=== PATIENT | female | born 1940 | race Caucasian/White ===

== ENCOUNTER 2023-11-24 19:39 | Emergency (ER) | payer MEDICARE, BC, SELFPAY ==
[2023-11-24 19:40] VITALS: BP 160/85
--- NOTE | 2023-11-24 21:22 | ED.GENMED ---
History of Present Illness
General
Chief Complaint: Fall
Time Seen by Provider: 11/24/23 20:33
History of Present Illness
History of Present Illness:
83-year-old female presents the emergency department for evaluation of lower lip discomfort, and left wrist pain after a mechanical fall. Tripped on a curb and fell down. No loss conscious. She is not on anticoagulants. Last tetanus is unknown
Past History
Past History
ED Past Medical History: Cancer (cervical), HTN, Other (diverticulosis) and Other (Arthritis)
Social History
Tobacco: Former smoker
Alcohol: None
Drug: None
Personal:
Living: alone
Employment: Employed
Review of Systems
Review of Systems
Allergies reviewed?: Yes
All Other Systems: ROS reviewed and negative except as documented in HPI and ROS
Phy Exam
Physical Exam
Physical Exam:
GEN: Well appearing, NAD, WDWN
HEENT: Oral mucosa moist, no scleral icterus, minor laceration to the lower lip with a 1 cm partial-thickness laceration just inferior to the vermilion border on the right
Cardiac: Regular rate
Lung: No respiratory distress, no tachypnea
MSK: No gross deformity or injuries, tenderness to the ulnar aspect of the left hand with no gross deformity and normal range of motion is appreciated
Skin: Good color, no pallor or jaundice, no rashes
Neuro: AO x3, moves all extremities freely, cranial nerves II through XII grossly intact
Psych: Calm, cooperative
Course
Orders/Labs/Results
Orders:
Orders
11/24/23 19:50
Wrist, Left 3 Views CR [CR Wrist - Left Min 3 Views] Urgent
Comment:
Reason For Exam: injury and pain
11/24/23 19:[address] [CT Head W/o Iv Contrast] Urgent
Comment: the patient landed on her face.
Reason For Exam: S/P fall
11/24/23 21:02
Tetanus/Diphth/Acelpertussis [Adacel] 0.5 ml IM .ONCE ONE
Vital Signs
Initial and Last Documented VS:
Initial Vital Signs
Temp Pulse Resp BP Pulse Ox
98.0 F 66 20 160/85 97
11/24/23 19:40 11/24/23 19:40 11/24/23 19:40 11/24/23 19:40 11/24/23 19:40
Last Documented Vital Signs
Temp Pulse Resp BP Pulse Ox
98.0 F 60 18 148/80 94
11/24/23 19:40 11/24/23 22:02 11/24/23 22:02 11/24/23 22:02 11/24/23 22:02
MDM/Problems Addressed
MDM/Problems Addressed:
CT of the head and left wrist x-ray are unremarkable. The lower lip laceration was reapproximated and closed with skin glue after irrigation.
*Critical Care Note
Total Time (30-74mins, 75-104mins- exclusive of procedures): Not Applicable
ED Attending Note
-
Portions of this chart may have been created with voice recognition software.� Occasional wrong word or��sound alike� substitutions may have occurred due to the inherent limitations of voice recognition software.
Discharge Plan
Departure
Patient Disposition: Home (Routine Discharge)
Date of Disposition: 11/24/23
Time of Disposition: 21:23
Patient with high blood pressure during this ER visit?: No
Discharge Problem:
Left wrist sprain, Laceration of lip
Instructions: Laceration Repair With Glue (DC)
Prescriptions:
No Action
triamterene-hydrochlorothiazid 1 CAPSULE capsule
1 cap PO DAILY
vitamins A,C,S-[id number] [PreserVision AREDS] 1 CAP capsule
1 cap PO DAILY
pantoprazole 40 MG tablet,delayed release (DR/EC)
40 mg PO DAILY Qty: 30 0RF
Referrals:
Sophie Deluna PA-C [Family Provider] -
Interventions
Interventions:
*General Assessment Last Done: 11/24/23 19:40
*Neglect/Abuse Screening Last Done: 11/24/23 19:40
*Nursing Disposition Last Done: 11/24/23 22:04
ED-Musculoskeletal Assessment Last Done: 11/24/23 22:02
ED- Neurological Assessment Last Done: 11/24/23 22:02
ED-Skin Assessment Last Done: 11/24/23 22:02
Discharge Date and Time
Discharge Date/Time: 11/24/23 22:04
Print Language: AMHARIC
[2023-11-24] MEDS: ADACEL 0.5 ML IM (21:36)
[2023-11-24 22:02] VITALS: BP 148/80
== END 2023-11-24 22:04 | disposition home or self-care (01) ==
LOC: EMR 19:39
PROVIDERS: EMERGENCY PHYSICIAN Emergency Medicine; FAMILY PHYSICIAN Physician Assistant Medical
DX: S63.502A Unspecified sprain of left wrist, initial encounter (principal); S01.511A Laceration without foreign body of lip, initial encounter; W10.1XXA Fall (on)(from) sidewalk curb, initial encounter; Z23 Encounter for immunization; I10 Essential (primary) hypertension; Z87.891 Personal history of nicotine dependence; K57.90 Diverticulosis of intestine, part unspecified, without perforation or abscess without bleeding; Z85.41 Personal history of malignant neoplasm of cervix uteri; M19.90 Unspecified osteoarthritis, unspecified site; Z88.6 Allergy status to analgesic agent
CPT/HCPCS: 99284; 90471; 12011; 70450; 73110; 90715

== ENCOUNTER → 2024-03-09 13:49 | Outpatient (REF) | payer MEDICARE, BC, SELFPAY | LOC: HWRAD 13:49 | PROVIDERS: ATTENDING PHYSICIAN Specialist; FAMILY PHYSICIAN Physician Assistant Medical | DX: M79.5 Residual foreign body in soft tissue (principal) | CPT/HCPCS: 70150 ==

== ENCOUNTER → 2024-04-09 13:55 | Outpatient (REF) | payer MEDICARE, BC, SELFPAY | LOC: HWRAD 13:55 | PROVIDERS: ATTENDING PHYSICIAN Physician Assistant Medical | DX: M54.41 Lumbago with sciatica, right side (principal); M25.552 Pain in left hip | CPT/HCPCS: 72110; 73502 ==

== ENCOUNTER 2024-06-06 08:14 | Inpatient (IN) | payer MEDICARE, BC, SELFPAY ==
[2024-05-15 13:58] LABS: Hematocrit 37.5 % (37.0-47.0); Hemoglobin 12.2 g/dL (12.0-16.0); Mean Corp Hgb Conc. 32.5 g/dL (33.0-37.0); Mean Corpuscular Hgb 32.3 pg (27.0-31.0); Mean Corpuscular Volume 99.2 fL (81.0-99.0); Mean Platelet Volume 9.8 fL (7.4-10.4); Platelet Count 305 10^3/uL (130-400); Red Blood Cell Count 3.78 10^6/uL (4.20-5.40); Red Cell Dist. Width 12.8 % (11.5-14.5); White Blood Cell Count 6.6 10^3/uL (4.8-10.8)
[2024-05-15 14:09] VITALS: BMI 29.3
[2024-05-15 14:33] LABS: ALT (SGPT) 14 U/L (0-35); AST (SGOT) 19 U/L (14-36); Alkaline Phosphatase 71 U/L (38-126); Blood Urea Nitrogen 21 mg/dl (7-17); Calcium 9.3 mg/dl (8.4-10.2); Carbon Dioxide 30 mmol/L (22-30); Chloride 101 mmol/L (98-107); Estimated Creatinine Clearance 52 ml/min; Glucose 79 mg/dl (70-99); Sodium 138 mmol/L (135-145); Total Bilirubin 0.5 mg/dl (0.2-1.3); Total Protein 6.7 g/dl (6.3-8.2); eGFR > 60.00
[2024-05-16 09:45] LABS: Glycohemoglobin (HgbA1c) 4.9 % (4.0-5.6)
--- NOTE | 2024-05-18 15:25 | VNURNOTE ---
Rec'ed info that patient will need VN, PT post-op. Chart reviewed. Pt will be in [facility] status day of surgery. She will be admitted and a CM will see her to assist in final DC planning/dispo. [facility] referral placed in [facility]. [facility] liaison to
follow up post-op.
[2024-06-06] VITALS (13 sets, daily range): BP systolic 89–157; BP diastolic 53–78; PULSE 66–85; O2SAT 100; BMI 29.3
[2024-06-06] MEDS: TYLENOL 650 MG PO ×4 (08:03→23:10)
[2024-06-06] MEDS: NORMOSOL-R/PLASMALYTE-A 1000 IV ×2 (08:18→13:58)
--- NOTE | 2024-06-06 10:33 | SUR.PHASEI ---
Rec'd in bed with HOB elevated low fowlers, b/p 85/55 med by IDA bonds, oriented x 3 by RN, pt very sleepy
--- NOTE | 2024-06-06 10:52 | SUR.PHASEI ---
REmains sleepy, xray done cornell well B/p returning to baseline with sp regression
--- NOTE | 2024-06-06 11:08 | SUR.PHASEI ---
Very sleepy, systolic remains in the 90s, cornell well
--- NOTE | 2024-06-06 12:17 | W.PN.UPDATE ---
Update Note
Progress Note Update
R hip OA s/p R RUBI w/ Dr Pierce 06/06/24
DVT prophylaxis - Eliquis 2.5 mg PO BID x30 days d/t ASA allergy, b/l venous foot pumps
- Will try and obtain Eliquis coupon from prior to d/c
HTN - + parameters - monitor BP
Diverticulitis with lower GI bleed 2017 - no NSAIDs
Irritable bowel syndrome with diarrhea - per pt preference, will continue Colace and Senna for post-surgical bowel regimen
Right subdural hematoma, 2019, secondary to fall, status post craniotomy - fall precautions
- Minimize opioids as able
Daily alcohol - 2 alcoholic drinks/nightly reported
- Supplement w/ thiamine, folic acid
- Consider Gabapentin and Serax HS
- Watch for potential s/sx of withdrawal
Hypercholesterolemia
Mild mitral regurgitation
Venous varicosities
Chronic left lower extremity lymphedema
Colon polyps
Nephrolithiasis, nonobstructive.
Restless leg syndrome
Optical migraines
Multilevel degenerative disc disease
Cervical cancer, 2007, status post hysterectomy and radiation
History of shingles
Osteopenia
Remote tobacco abuse
--- NOTE | 2024-06-06 12:46 | PTCARENOTE ---
pt admitted to 2S room 2114 from the PACU at 1150. pt arrived awake and alert via bed. pt oriented to room, call musa and plan of care with verbalized understanding. assessment as documented. Right hip surgical dressing remains clean and dry.
care ongoing.
[2024-06-06] MEDS: VITAMIN B-12 1000 MCG PO (13:55)
[2024-06-06] MEDS: VITAMIN D3 (cholecalciferol) 125 MCG PO (13:55)
[2024-06-06] MEDS: FOLVITE 0.5 MG PO (13:55)
[2024-06-06] MEDS: VITAMIN B1 100 MG PO (13:55)
[2024-06-06] MEDS: ANCEF 5 IV ×2 (16:44→23:10)
[2024-06-06] MEDS: SENOKOT 17.2 MG PO (19:43)
[2024-06-06] MEDS: DECADRON 4 MG PO (19:43)
[2024-06-06] MEDS: BACTROBAN 2% OINTMENT 1 APPLIC NASAL (19:43)
[2024-06-06] MEDS: COLACE 100 MG PO (19:43)
[2024-06-06] MEDS: ELIQUIS 2.5 MG PO (19:43)
[2024-06-06] MEDS: ROXICODONE 10 MG PO (19:47)
[2024-06-06] MEDS: MELATONIN 5 MG PO (21:53)
[2024-06-06] MEDS: PEPCID 20 MG PO (21:53)
[2024-06-07] MEDS: TYLENOL 650 MG PO ×3 (04:33→13:09)
[2024-06-07 04:38] VITALS: BP 126/63
[2024-06-07] MEDS: ROXICODONE 10 MG PO ×2 (04:38→10:34)
[2024-06-07 07:54] VITALS: BP 106/64
[2024-06-07] MEDS: VITAMIN B1 100 MG PO (08:39)
[2024-06-07] MEDS: VISBIOME 1 CAP PO (08:39)
[2024-06-07] MEDS: SENOKOT 17.2 MG PO (08:40)
[2024-06-07] MEDS: DECADRON 4 MG PO (08:40)
[2024-06-07] MEDS: VITAMIN B-12 1000 MCG PO (08:40)
[2024-06-07] MEDS: FOLVITE 0.5 MG PO (08:41)
[2024-06-07] MEDS: ELIQUIS 2.5 MG PO (08:41)
[2024-06-07] MEDS: COLACE 100 MG PO (08:41)
[2024-06-07] MEDS: VITAMIN D3 (cholecalciferol) 125 MCG PO (08:41)
[2024-06-07] MEDS: BACTROBAN 2% OINTMENT 1 APPLIC NASAL (08:43)
[2024-06-07] MEDS: LIDOCAINE 4% PATCH 2 PATCH TOPICAL (10:24)
--- NOTE | 2024-06-07 10:39 | VNURNOTE ---
Home Health Liaison met with patient at bedside to discuss [facility] nurse/therapy, visits, schedule and homebound status. Patient is agreeable and understands that visits at home will be 2-3 x per week to assess and teach medical management. Patient is
aware that [facility] will contact them for start of care in 1-2 days after discharge from .
[facility] referral accepted in [facility].
--- NOTE | 2024-06-07 10:45 | CM ---
Patient seen at bedside
IA completed
CM consult completed
IMM explained & signed. In chart
Lives alone in a 1 story home
PLOF: Independent with cane
DME: Walker, cane, commode, hip kit, grabber
states just ordered another commode
Patient states that her sister will be staying with her for a few days
PT/OT rec HH
has had VN in past, denies rehab
Options reviewed - Prefers [facility] - referral in [facility]-accepted
PCP: Sophie Deluna
Pharmacy: [facility]
PLAN: Home with [facility]
States sister to transport
[2024-06-07 11:36] VITALS: BP 116/68
[2024-06-07 12:07] VITALS: BP 116/68; BP 125/59; BP 131/60; PULSE 69; PULSE 74; O2SAT 97
--- NOTE | 2024-06-07 12:10 | W.PN.ORTHO ---
Today's Communication / Plan
-
Await PT and OT recs.
D/c later today if remaining clinically stable.
Assessment
.
Distal Motor Intact: Yes
Dressing:
Clean, dry and intact.
Assessment:
R hip OA s/p R RUBI w/ Dr Pierce 06/06/24
DVT prophylaxis - Eliquis 2.5 mg PO BID x30 days d/t ASA allergy, b/l venous foot pumps
- Pt picked up Eliquis for 33 dollars pre-op
HTN - + parameters - BPs overall stable
Diverticulitis with lower GI bleed 2017 - no NSAIDs
Irritable bowel syndrome with diarrhea - per pt preference, will continue Colace and Senna for post-surgical bowel regimen
Right subdural hematoma, 2019, secondary to fall, status post craniotomy - fall precautions
- Minimize opioids as able
Daily alcohol - 2 alcoholic drinks/nightly reported
- Supplement w/ thiamine, folic acid
- Consider Gabapentin and Serax HS
- No s/sx of withdrawal during admission
Hypercholesterolemia
Mild mitral regurgitation
Venous varicosities
Chronic left lower extremity lymphedema
Colon polyps
Nephrolithiasis, nonobstructive.
Restless leg syndrome
Optical migraines
Multilevel degenerative disc disease
Cervical cancer, 2007, status post hysterectomy and radiation
History of shingles
Osteopenia
Remote tobacco abuse
Plan
.
Surgery / Date: R RUBI w/ Dr Pierce 06/06/24
DVT Prophylaxis: Other (Eliquis )
Activity:
Out of bed.
PT/OT
Discharge Plan: Home w/ VN
Subjective
.
.:
Patient resting comfortably in her bed.
R hip pain overall well tolerated w/ current pain meds.
Denies any new current complaints.
Pt nervous about d/c home today - reassurance provided.
Vital Signs and Labs
.
Vital Signs and Labs:
Lab Results
05/15/24 12:43
05/15/24 12:43
Temp Pulse Resp BP Pulse Ox
97.5 F 84 16 116/68 99
06/07/24 11:36 06/07/24 11:36 06/07/24 11:36 06/07/24 11:36 06/07/24 11:36
Non-invasive Hgb result: 11.5
Physical Exam
-
HEENT: No pallor, cyanosis, or jaundice. Throat clear.
NECK: Supple. No JVD.
RESPIRATORY: Lungs clear to auscultation.
CVS: S1, S2 normal. RRR.�
ABDOMEN: Soft, non-tender. No distension.
EXTREMITIES: Strength equal, no calf pain with palpation/dorsiflexion. Calves soft.
FLUSH TESTER: AOx3. No focal deficits. manufacturing controller grossly intact
--- NOTE | 2024-06-07 12:18 | W.DS.TRANS ---
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
-
Discharge Instructions:
Sleep Apnea Risk Low
Discharge Diagnosis/Procedures R hip OA s/p R RUBI w/ Dr Pierce 06/06/24
Diet Other diet
Additional Diets Diabetic carb controlled x1 week for wound
healing/infection prevention.
Activity As tolerated,With Walker
Driving Restrictions Not until seen by your Dr
Bathing Restrictions OK to Shower
Other Services PT,VN
Wound Care Dressing to be removed 1 week post-surgery.
Instructions:
Stand-Alone Forms: Total Hip/Knee Replacement D/C
Changes to Home Medications: Yes
Discharge Medications:
DC Medications w/original date entered in [facility]
vitamins A,C,N-dnyd-ajrmyp 4,296 mcg-226 mg-90 mg capsule (PreserVision AREDS) 2 cap PO DAILY 11/26/13
Bifidobacterium infantis 4 mg capsule (Align (B.infantis)) 4 mg PO DAILY 05/14/24
biotin 5,000 mcg chewable tablet 5,000 mcg PO DAILY 05/14/24
cholecalciferol (vitamin D3) 125 mcg (5,000 unit) tablet (Vitamin D3) 125 mcg PO DAILY 05/14/24
collagen 1 tab PO DAILY 05/14/24
mecobalamin (vitamin B12) 1,000 mcg chewable tablet (B12 Active) 1,000 mcg PO DAILY 05/14/24
mupirocin 2 % topical ointment 1 applic intranasal BID #1 tube 05/15/24
apixaban 2.5 mg tablet (Eliquis) 2.5 mg PO BID Blood clot prevention/tx #60 tabs 05/30/24
acetaminophen 500 mg tablet 1,000 mg (2 x 500 mg) PO Q6H #0 tabs 06/06/24
dexamethasone 4 mg tablet 4 mg PO BID Anti-inflammatory #5 tabs 06/06/24
docusate sodium 100 mg capsule 100 mg PO BID #30 caps 06/06/24
famotidine 20 mg tablet (Pepcid) 20 mg PO HS #30 tabs 06/06/24
ondansetron HCl 4 mg tablet 4 mg PO Q6H PRN nausea and vomiting #30 tabs 06/06/24
oxycodone 5 mg tablet 5 - 10 mg (1 - 2 x 5 mg) PO Q6H PRN moderate-severe pain #30 tabs 06/06/24
sennosides 8.6 mg tablet (Xochitl-roger) 17.2 mg (2 x 8.6 mg) PO BID #30 tabs 06/06/24
triamterene 37.5 mg-hydrochlorothiazide 25 mg tablet 1 tab PO DAILY #1 tab 06/06/24
gabapentin 100 mg capsule 200 mg (2 x 100 mg) PO BID PRN neuropathic pain #20 caps 06/07/24
lidocaine 4 % topical patch 2 patch topical DAILY #30 ea 06/07/24
Home Medication Changes
apixaban 2.5 mg tablet (Eliquis) 2.5 mg PO BID Blood clot prevention/tx #60 tabs 05/30/24
acetaminophen 500 mg tablet 1,000 mg (2 x 500 mg) PO Q6H #0 tabs 06/06/24
dexamethasone 4 mg tablet 4 mg PO BID Anti-inflammatory #5 tabs 06/06/24
docusate sodium 100 mg capsule 100 mg PO BID #30 caps 06/06/24
famotidine 20 mg tablet (Pepcid) 20 mg PO HS #30 tabs 06/06/24
ondansetron HCl 4 mg tablet 4 mg PO Q6H PRN nausea and vomiting #30 tabs 06/06/24
oxycodone 5 mg tablet 5 - 10 mg (1 - 2 x 5 mg) PO Q6H PRN moderate-severe pain #30 tabs 06/06/24
sennosides 8.6 mg tablet (Xochitl-roger) 17.2 mg (2 x 8.6 mg) PO BID #30 tabs 06/06/24
gabapentin 100 mg capsule 200 mg (2 x 100 mg) PO BID PRN neuropathic pain #20 caps 06/07/24
lidocaine 4 % topical patch 2 patch topical DAILY #30 ea 06/07/24
Pending Results: No
[2024-06-07 12:56] VITALS: BP 124/68
== END 2024-06-07 14:19 | disposition home health service (06) | DRG 470 ==
LOC: 2 SOUTH 08:14
PROVIDERS: ADMITTING PHYSICIAN Orthopaedic Surgery; FAMILY PHYSICIAN Physician Assistant Medical
PROC: 0SR903A Replacement of Right Hip Joint with Ceramic Synthetic Substitute, Uncemented, Open Approach (ICD-10-PCS; 2024-06-06)
DX: M16.11 Unilateral primary osteoarthritis, right hip (principal); M85.851 Other specified disorders of bone density and structure, right thigh; I10 Essential (primary) hypertension; I89.0 Lymphedema, not elsewhere classified; E78.00 Pure hypercholesterolemia, unspecified; G25.81 Restless legs syndrome; G43.109 Migraine with aura, not intractable, without status migrainosus; K58.0 Irritable bowel syndrome with diarrhea; N20.0 Calculus of kidney; I34.0 Nonrheumatic mitral (valve) insufficiency; Z88.6 Allergy status to analgesic agent; Z90.710 Acquired absence of both cervix and uterus; Z86.79 Personal history of other diseases of the circulatory system; Z87.891 Personal history of nicotine dependence; Z79.899 Other long term (current) drug therapy
CPT/HCPCS: 36415; 73502; 80053; 83036; 85027; 87070; 93005; 97110; 97116; 97162; 97167; 97530; 97535; C1713; C1776

== ENCOUNTER 2024-12-19 06:50 | Inpatient (IN) | payer MEDICARE, BC, SELFPAY ==
--- NOTE | 2024-11-14 11:55 | CM ---
Demographics: confirmed
Living situation: lives alone, plans to have sister and son stay with her
Support Person Post Operatively: Sister and son
History of
VN: History of [facility], currently not on service
SNF: none
Outpatient: Plans to use home visiting PT after [facility] has discharged her, PT Ignacio Collazo
Has patient purchased required equipment: yes
PCP: Dr. Sophie Garner
Pharmacy: [facility] in [place]
Post Operative Discharge Plan: [facility], and then transition to visiting PT for outpatient PT.
[2024-11-28 13:49] LABS: Hematocrit 36.4 % (37.0-47.0); Hemoglobin 11.7 g/dL (12.0-16.0); Mean Corp Hgb Conc. 32.1 g/dL (33.0-37.0); Mean Corpuscular Volume 94.3 fL (81.0-99.0); Platelet Count 301 10^3/uL (130-400); Red Cell Dist. Width 14.6 % (11.5-14.5)
[2024-11-28 14:02] LABS: ALT (SGPT) 10 U/L (0-35); AST (SGOT) 17 U/L (14-36); Albumin 4.2 g/dl (3.5-5.0); Alkaline Phosphatase 74 U/L (38-126); Blood Urea Nitrogen 24 mg/dl (7-17); Calcium 9.5 mg/dl (8.4-10.2); Carbon Dioxide 29 mmol/L (22-30); Chloride 105 mmol/L (98-107); Glucose 70 mg/dl (70-99); Potassium 4.0 mmol/L (3.5-5.1); Sodium 140 mmol/L (135-145); Total Protein 6.8 g/dl (6.3-8.2); eGFR > 60.00
[2024-11-28 14:11] VITALS: BMI 27.1
[2024-11-28 14:48] LABS: Glycohemoglobin (HgbA1c) 4.8 % (4.0-5.6)
[2024-11-28 14:58] VITALS: BMI 27.1
[2024-12-19] VITALS (21 sets, daily range): BP systolic 104–153; BP diastolic 53–79; PULSE 76; O2SAT 98
[2024-12-19] MEDS: TYLENOL 650 MG PO ×4 (07:21→19:35)
[2024-12-19] MEDS: NORMOSOL-R/PLASMALYTE-A 1000 IV ×2 (07:46→11:34)
--- NOTE | 2024-12-19 08:45 | W.PN.ORTHO ---
Today's Communication / Plan
-
d/c when stable
Assessment
.
Assessment:
DVT ppx Eliquis due to asa allergy and increased risk of clot to include
peripheral edema, w/ varicosities, hx malignancy in setting of orthopedic
surgery
Pain control. Controlled substance will be tramadol due to
adverse reaction to oxycodone. She does have several of her previous
discharge medications at home. Remaining medications have been
prescribed
IBS-D
-prn Senna
Right subdural hematoma 2019 secondary to mechanical fall
s/p craniotomy.
-fall precautions
Plan
.
Surgery / Date: L RUBI Dr Pierce 12/19/24
DVT Prophylaxis: Other (Eliquis + SCD)
Activity:
Out of bed.
PT/OT
Discharge Plan: Home w/ VN
Vital Signs and Labs
.
Vital Signs and Labs:
Lab Results
11/28/24 12:57
11/28/24 12:57
Temp Pulse Resp BP Pulse Ox
97.5 F 75 16 153/79 99
12/19/24 07:24 12/19/24 07:24 12/19/24 07:24 12/19/24 07:24 12/19/24 07:24
--- NOTE | 2024-12-19 09:07 | W.DS.TRANS ---
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
-
Discharge Instructions:
Sleep Apnea Risk Low
Discharge Diagnosis/Procedures L RUBI Dr Pierce 12/19/24
Diet As tolerated
Activity With Walker
Driving Restrictions No driving
Bathing Restrictions OK to Shower
Other Services PT,VN,OT
Instructions:
Stand-Alone Forms: Total Hip/Knee Replacement D/C
Changes to Home Medications: Yes
Discharge Medications:
DC Medications w/original date entered in [employer]
vitamins A,C,F-xgpr-cyezdz 4,296 mcg-226 mg-90 mg capsule (PreserVision AREDS) 2 cap PO DAILY 11/26/13
Held on 12/19/24. Instructions: Resume on 12/27/24.
Bifidobacterium infantis 4 mg capsule (Align (B.infantis)) 4 mg PO DAILY 05/14/24
biotin 5,000 mcg chewable tablet 5,000 mcg PO DAILY 05/14/24
cholecalciferol (vitamin D3) 125 mcg (5,000 unit) tablet (Vitamin D3) 125 mcg PO DAILY 05/14/24
collagen 1 tab PO DAILY 05/14/24
Held on 12/19/24. Instructions: Resume on 12/27/24.
mecobalamin (vitamin B12) 1,000 mcg chewable tablet (B12 Active) 1,000 mcg PO DAILY 05/14/24
carboxymethylcellulose sodium 1 % eye liquid gel drops 1 drp ophthalmic (eye) DAILY 11/27/24
peg 400-propylene glycol 0.4 %-0.3 % eye drops (Systane (propylene glycol)) 1 drp ophthalmic (eye) DAILY PRN dry eyes 11/27/24
apixaban 2.5 mg tablet (Eliquis) 2.5 mg PO BID Blood clot prevention/tx #90 tabs 11/28/24
dexamethasone 4 mg tablet 4 mg PO BID inflammation #6 tabs 11/28/24
famotidine 20 mg tablet 20 mg PO HS GI prophylaxis #30 tabs 11/28/24
gabapentin 300 mg capsule 300 mg PO HS sleep/pain #10 caps 11/28/24
mupirocin 2 % topical ointment 1 applic topical BID infection prevention #1 tube 11/28/24
tramadol 50 mg tablet 50 mg PO Q6H PRN 1 tab moderate pain, 2 if severe #30 tabs 11/28/24
acetaminophen 500 mg tablet 1,000 mg (2 x 500 mg) PO QID #0 tabs 12/19/24
docusate sodium 100 mg capsule (Colace) 100 mg PO BID stool softner #1 cap 12/19/24
sennosides 8.6 mg tablet (Senokot) 17.2 mg (2 x 8.6 mg) PO BID PRN constipation #2 tabs 12/19/24
triamterene 37.5 mg-hydrochlorothiazide 25 mg tablet 1 tab PO DAILY #1 tab 12/19/24
Home Medication Changes
apixaban 2.5 mg tablet (Eliquis) 2.5 mg PO BID Blood clot prevention/tx #90 tabs 11/28/24
dexamethasone 4 mg tablet 4 mg PO BID inflammation #6 tabs 11/28/24
famotidine 20 mg tablet 20 mg PO HS GI prophylaxis #30 tabs 11/28/24
gabapentin 300 mg capsule 300 mg PO HS sleep/pain #10 caps 11/28/24
mupirocin 2 % topical ointment 1 applic topical BID infection prevention #1 tube 11/28/24
tramadol 50 mg tablet 50 mg PO Q6H PRN 1 tab moderate pain, 2 if severe #30 tabs 11/28/24
acetaminophen 500 mg tablet 1,000 mg (2 x 500 mg) PO QID #0 tabs 12/19/24
docusate sodium 100 mg capsule (Colace) 100 mg PO BID stool softner #1 cap 12/19/24
sennosides 8.6 mg tablet (Senokot) 17.2 mg (2 x 8.6 mg) PO BID PRN constipation #2 tabs 12/19/24
triamterene 37.5 mg-hydrochlorothiazide 25 mg tablet 1 tab PO DAILY #1 tab 12/19/24
Pending Results: No
[2024-12-19] MEDS: ULTRAM 50 MG PO ×2 (11:07→17:41)
--- NOTE | 2024-12-19 13:50 | PTCARENOTE ---
Pt received from the PACU via bed. Transport was w/o incident. Pt is AAOX3, HR reg/irreg, lungs are coarse/clear b/l., Resp. easy, Pulse ox 96%RA. Pt's left hip w/ antibacterial dressing C/D/I, no drainage noted at present. Pt reports full sensation
has returned to left leg, and Pt able to lift left leg and wiggle her toes. Pt denies nausea and pain at this time. VSS, Pt is afebrile. Pt instructed on plan of care, Pt verbalized understanding of instructions.
[2024-12-19] MEDS: ANCEF 5 IV (17:36)
[2024-12-19] MEDS: ELIQUIS 2.5 MG PO (19:35)
[2024-12-19] MEDS: DECADRON 4 MG IV (19:36)
[2024-12-19] MEDS: COLACE PO (20:08)
[2024-12-19] MEDS: BACTROBAN 2% OINTMENT 1 APPLIC NASAL (21:13)
[2024-12-19] MEDS: PEPCID 20 MG PO (21:15)
[2024-12-19] MEDS: NEURONTIN 300 MG PO (21:16)
[2024-12-20] MEDS: ANCEF 5 IV (00:28)
[2024-12-20] MEDS: TYLENOL 650 MG PO ×3 (00:28→10:26)
[2024-12-20 03:05] VITALS: BP 116/60
[2024-12-20 07:05] VITALS: BP 123/72
[2024-12-20 09:14] VITALS: BP 109/56; PULSE 70
--- NOTE | 2024-12-20 10:17 | W.PN.ORTHO ---
Today's Communication / Plan
-
d/c
Assessment
.
Distal Motor Intact: Yes
Dressing:
Clean, dry and intact.
Assessment:
DVT ppx Eliquis due to asa allergy and increased risk of clot to include
peripheral edema, w/ varicosities, hx malignancy in setting of orthopedic
surgery
Pain control. Controlled substance will be tramadol due to
adverse reaction to oxycodone. She does have several of her previous
discharge medications at home. Remaining medications have been
prescribed
IBS-D
-prn Senna
Right subdural hematoma 2019 secondary to mechanical fall
s/p craniotomy.
-fall precautions
Plan
.
Surgery / Date: L RUBI Dr Pierce 12/19/24
DVT Prophylaxis: Other (Eliquis)
Activity:
Out of bed.
PT/OT
Discharge Plan: Home w/ VN
Subjective
.
.:
Patient resting comfortably.
Vital Signs and Labs
.
Vital Signs and Labs:
Lab Results
11/28/24 12:57
11/28/24 12:57
Temp Pulse Resp BP Pulse Ox
98 F 66 16 123/72 98
12/20/24 07:05 12/20/24 07:05 12/20/24 07:05 12/20/24 07:05 12/20/24 07:05
Non-invasive Hgb result: 11.5
Physical Exam
-
HEENT: No pallor, cyanosis, or jaundice. Throat clear.
NECK: Supple. No JVD.
RESPIRATORY: Lungs clear to auscultation.
CVS: S1, S2 normal. RRR.� No murmur, rub or gallop.
ABDOMEN: Soft, non-tender. No distension. BS+/normal.
EXTREMITIES: strength equal, no calf pain with palpation
BROADCAST MAINTENANCE ENGINEER: AOx3. No focal deficits. high school special education teacher grossly intact
[2024-12-20 10:23] VITALS: BP 105/56; BP 118/67; PULSE 73; PULSE 82; O2SAT 99
[2024-12-20] MEDS: BACTROBAN 2% OINTMENT 1 APPLIC NASAL (10:25)
[2024-12-20] MEDS: COLACE 100 MG PO (10:26)
[2024-12-20] MEDS: DECADRON 4 MG IV (10:26)
[2024-12-20] MEDS: ELIQUIS 2.5 MG PO (10:26)
--- NOTE | 2024-12-20 10:38 | CM ---
Cm updated [facility] Admission RN with updated referral. Patient confirmed that she understood home care would be coming out.
PLAN: Home with [facility].
--- NOTE | 2024-12-20 10:49 | VNURNOTE ---
Home Health Liaison met with patient and daughter at bedside to discuss [facility] nurse/therapy, visits, schedule and homebound status. Patient is agreeable and understands that visits at home will be 2-3 x per week to assess and teach medical
management. Patient is aware that [facility] will contact them for start of care in 1-2 days after discharge from .
PM [facility] referral completed in [facility].
== END 2024-12-20 11:33 | disposition home health service (06) | DRG 470 ==
LOC: 2 SOUTH 06:50
PROVIDERS: ADMITTING PHYSICIAN Orthopaedic Surgery; FAMILY PHYSICIAN Physician Assistant Medical
PROC: 0SRB03A Replacement of Left Hip Joint with Ceramic Synthetic Substitute, Uncemented, Open Approach (ICD-10-PCS; 2024-12-19)
DX: M16.12 Unilateral primary osteoarthritis, left hip (principal); E78.2 Mixed hyperlipidemia; I10 Essential (primary) hypertension; I89.0 Lymphedema, not elsewhere classified; D64.9 Anemia, unspecified; I87.2 Venous insufficiency (chronic) (peripheral); G43.109 Migraine with aura, not intractable, without status migrainosus; G25.81 Restless legs syndrome; K58.0 Irritable bowel syndrome with diarrhea; M85.852 Other specified disorders of bone density and structure, left thigh; Z88.6 Allergy status to analgesic agent; Z96.641 Presence of right artificial hip joint; Z87.891 Personal history of nicotine dependence; Z85.41 Personal history of malignant neoplasm of cervix uteri; Z79.899 Other long term (current) drug therapy; Z79.01 Long term (current) use of anticoagulants
CPT/HCPCS: 36415; 73502; 80053; 83036; 85027; 86850; 86900; 86901; 87070; 93005; 97110; 97116; 97162; 97167; 97530; 97535; C1713; C1776